=== PATIENT | female | born 1970 | race Caucasian/White ===

== ENCOUNTER 2024-09-14 06:00 | Inpatient (IN) | payer OTHER ==
[~2024-09-14] VITALS: Ht 167.6 cm; Wt 65.8 kg
[2024-09-14 06:20] LABS: BASOPHILS ABSOLUTE AUTO 0.05 K/mm3 (0.00-0.23); BASOPHILS PERCENT AUTO 0 % (0-2); EOSINOPHILS PERCENT AUTO 0 % (0-6); Hematocrit 41.6 % (33.0-51.0); Hemoglobin 14.8 g/dL (11.5-16.0); IMMATURE GRAN ABSOLUTE AUTO 0.05 K/mm3 (0.00-0.10); IMMATURE GRAN PERCENT AUTO 0 % (0-1); LYMPHOCYTES ABSOLUTE AUTO 0.95 K/mm3 (0.84-5.20); LYMPHOCYTES PERCENT AUTO 5 % (21-46); MONOCYTES ABSOLUTE AUTO 0.61 K/mm3 (0.16-1.47); MONOCYTES PERCENT AUTO 3 % (4-13); Mean Corpuscular HGB 32.2 pg (26.0-34.0); Mean Corpuscular HGB Conc 35.6 g/dL (31.5-36.5); Mean Corpuscular Volume 90 fL (80-100); Mean Platelet Volume 10.8 fL (9.1-12.4); NEUTROPHILS ABSOLUTE AUTO 19.33 K/mm3 (1.96-9.15); NEUTROPHILS PERCENT AUTO 92 % (41-73); Platelet Count 273 K/mm3 (150-400); RDW Coefficient Variation 11.9 % (11.7-14.2); RDW Standard Deviation 39.5 fL (35.1-46.3); White Blood Cell Count 20.99 K/mm3 (4.00-11.30)
[2024-09-14 06:39] LABS: Albumin, Blood 3.9 g/dL (3.4-5.0); Albumin/Globulin Ratio 1.1 (0.8-1.8); Bilirubin, Total 0.5 mg/dL (0.1-1.0); Bun/Creatinine Ratio 20.4 (12.0-20.0); Calcium, Blood 9.9 mg/dL (8.5-10.1); Creatinine, Blood 0.83 mg/dL (0.40-1.00); Globulin, Blood 3.6 g/dL (2.2-4.0); Potassium, Blood 4.1 mmol/L (3.5-5.5); Total Protein, Blood 7.5 g/dL (6.4-8.2)
[2024-09-14] MEDS ORDERED: NS 1,000 ML IV SCH ×2 (06:40→08:10)
[2024-09-14] MEDS ORDERED: Ondansetron HCl 2 MG / ML 2ML Vial IV ONE (06:40)
[2024-09-14] MEDS ORDERED: Morphine Sulfate 4 MG/1 ML Injection IV ONE (06:40)
[2024-09-14] MEDS ORDERED: FLU VACC TS2024-25(6MOS UP)/PF 45 MCG/0.5 ML SYRINGE IM SCH (08:10)
[2024-09-14] MEDS ORDERED: Ondansetron HCl 2 MG / ML 2ML Vial IV PRN (08:10)
[2024-09-14] MEDS ORDERED: MetroNIDAZOLE 500MG/NS 100 ml 100 ML IV SCH (08:11)
[2024-09-14] MEDS ORDERED: CefTRIAXone Sodium 1,000 MG in NS 100 ML IV SCH (09:00)
[2024-09-14] MEDS ORDERED: Lactobacil 2-S.Thermo-Bifido 1 1 Cap PO SCH (09:00)
[2024-09-14] MEDS ORDERED: Morphine Sulfate 4 MG/1 ML Injection IV PRN (10:45)
[2024-09-14 10:48] LABS: Source, Urine Clean Catch
[2024-09-14 10:51] LABS: Appearance, Urine Clear (Clear); Bilirubin, Urine Neg (Neg); Blood, Urine Neg (Neg); Color, Urine Yellow (P-Yellow); Glucose Qualitative, Urine Neg (Neg); Ketones, Urine Neg (Neg); Leukocyte Esterase, Urine Neg (Neg); Nitrite, Urine Neg (Neg); Protein, Urine Neg (Neg); Urobilinogen, Urine NORM (Normal)
[2024-09-14 12:47] LABS: Campylobacter Sp Not Detected (NOT DETECT); Cryptosporidium Not Detected (NOT DETECT); Cyclospora Cayetanensis Not Detected (NOT DETECT); E. Coli O157 Not Detected (NOT DETECT); Entamoeba Histolytica Not Detected (NOT DETECT); Enteroaggregative E. coli-EAEC Not Detected (NOT DETECT); Enteropathogenic E. coli-EPEC Not Detected (NOT DETECT); Enterotoxigenic E. coli-ETEC Not Detected (NOT DETECT); Giardia Lamblia Not Detected (NOT DETECT); Plesiomonas Shigelloides Not Detected (NOT DETECT); Salmonella Sp Not Detected (NOT DETECT); Shiga Toxin-prod E. coli-STEC Not Detected (NOT DETECT); Shigella/Enteroin E. coli-EIEC Not Detected (NOT DETECT); Vibrio Cholerae Not Detected (NOT DETECT); Vibrio Sp Not Detected (NOT DETECT); Yersinia Enterocolitica Not Detected (NOT DETECT)
[2024-09-14 12:48] LABS: Adenovirus F 40/41 Not Detected (NOT DETECT); Astrovirus Not Detected (NOT DETECT); Norovirus GI/GII Not Detected (NOT DETECT); Rotavirus A Not Detected (NOT DETECT); Sapovirus Not Detected (NOT DETECT)
[2024-09-14 16:04] VITALS: BP 127/86
--- NOTE | 2024-09-14 19:20 | NUR ---
RECEIVED REPORT FROM MATT RN. PT UP INDEP IN RM. ON RA. WILL CONTINUE TO PROVIDE CARE T/O SHIFT. CALL LT IN REACH.
--- NOTE | 2024-09-14 20:35 | NUR ---
PT DENIES NEEDS AT THIS TIME. PAIN HAS RESOLVED. CALL LT IN REACH.
[2024-09-14 21:34] VITALS: BP 106/70
--- NOTE | 2024-09-14 21:43 | NUR ---
NEW BAG OF NS HUNG AND INFUSING AT 100 MLS/HR. NO OTHER NEEDS. CALL LT IN REACH.
--- NOTE | 2024-09-14 23:57 | NUR ---
MEDICATED PT WITH 2MG IV MORPHINE FOR 5/10 ABD PAIN. ABX HUNG AND INFUSING. EAR PLUGS GIVEN PER PT REQUEST. NO OTHER NEEDS. CALL LT IN REACH.
--- NOTE | 2024-09-15 02:03 | NUR ---
RESTING QUIETLY. IVF INFUSING. CALL LT IN REACH.
--- NOTE | 2024-09-15 03:44 | NUR ---
PT STATES SHE GOT A LITTLE SLEEP. PAIN IS BETTER CONTROLLED. NO NAUSEA. WILL CONTINUE TO PROVIDE CARE. CALL LT IN REACH.
--- NOTE | 2024-09-15 03:45 | NUR ---
SHIFT SUMMARY: A/O X 4. INDEP IN RM. NS AT 100 MLS/HR. ON RA. STATES NEEDS APPROPRIATELY. MEDICATED FOR ABD PAIN X 3. PT SLEPT ON AND OFF DURING SHIFT. NO ACUTE CHANGES. WILL CONTINUE TO PROVIDE CARE UNTIL SHIFT REPORT TO ONCOMING NURSE. CALL LT IN REACH.
[2024-09-15 05:24] LABS: BASOPHILS ABSOLUTE AUTO 0.06 K/mm3 (0.00-0.23); BASOPHILS PERCENT AUTO 1 % (0-2); EOSINOPHILS ABSOLUTE AUTO 0.26 K/mm3 (0.00-0.68); EOSINOPHILS PERCENT AUTO 2 % (0-6); Hematocrit 36.5 % (33.0-51.0); Hemoglobin 12.3 g/dL (11.5-16.0); IMMATURE GRAN ABSOLUTE AUTO 0.04 K/mm3 (0.00-0.10); IMMATURE GRAN PERCENT AUTO 0 % (0-1); LYMPHOCYTES ABSOLUTE AUTO 2.19 K/mm3 (0.84-5.20); LYMPHOCYTES PERCENT AUTO 17 % (21-46); MONOCYTES ABSOLUTE AUTO 0.81 K/mm3 (0.16-1.47); MONOCYTES PERCENT AUTO 6 % (4-13); Mean Corpuscular HGB 32.3 pg (26.0-34.0); Mean Corpuscular HGB Conc 33.7 g/dL (31.5-36.5); Mean Platelet Volume 10.9 fL (9.1-12.4); NEUTROPHILS PERCENT AUTO 74 % (41-73); Platelet Count 195 K/mm3 (150-400); RDW Coefficient Variation 12.3 % (11.7-14.2); RDW Standard Deviation 42.8 fL (35.1-46.3); Red Blood Cell Count 3.81 M/mm3 (3.80-5.20); White Blood Cell Count 12.86 K/mm3 (4.00-11.30)
[2024-09-15 05:26] VITALS: BP 104/64
[2024-09-15 05:26] LABS: Mean Corpuscular Volume 96 fL (80-100)
[2024-09-15 05:57] LABS: Calcium, Blood 8.3 mg/dL (8.5-10.1); Creatinine, Blood 0.83 mg/dL (0.40-1.00); Potassium, Blood 3.9 mmol/L (3.5-5.5)
[2024-09-15 08:30] VITALS: BP 103/71
[2024-09-15] MEDS ORDERED: Temazepam 7.5 MG Cap PO PRN (15:20)
[2024-09-15 15:46] VITALS: BP 107/68
--- NOTE | 2024-09-15 18:45 | NUR ---
SHIFT SUMMARY PATIENT A/OX4, ABLE TO MAKE NEEDS KNOWN. PLEASANT AND COOPERATVIE WITH STAFF BUT TEARFUL AT TIMES DUE TO BEING HOSPITALIZED AND PATIENT STATES "HAS NEVER HAD HEALTH PROBLEMS". PATIENT CONSOLED AND PROVIDED WITH THERAPEUTIC LISTENING, ALSO SPENT 15 MINUTES SPEAKING WITH HER FAMILY VIA FACETIME TO EDUCATED AND UPDATE ON PATIENT STATUS AND DISCHARGE PLAN. PATIENT MEDICATED FOR PAIN THIS MORNING, BUT HAS SINCE DENIED NEED FOR PAIN MEDS AND DENIED HAVING ANY MORE BLOODY STOOLS. CONTINUES WITH IV FLUIDS, RUNNING PER OCT. UPGRADED TO FULL LIQUID DIET, TOLERATING WELL. SLEEP MEDICATION ORDERED FOR PATIENT PRN TO START TONIGHT PER HER REQUEST. NO OTHER CONCERNS AT THIS TIME.
[2024-09-15 19:28] VITALS: BP 109/71
[2024-09-16 03:04] VITALS: BP 107/65
[2024-09-16 05:34] LABS: BASOPHILS ABSOLUTE AUTO 0.06 K/mm3 (0.00-0.23); BASOPHILS PERCENT AUTO 1 % (0-2); EOSINOPHILS ABSOLUTE AUTO 0.38 K/mm3 (0.00-0.68); EOSINOPHILS PERCENT AUTO 4 % (0-6); Hematocrit 35.7 % (33.0-51.0); Hemoglobin 11.6 g/dL (11.5-16.0); IMMATURE GRAN ABSOLUTE AUTO 0.03 K/mm3 (0.00-0.10); IMMATURE GRAN PERCENT AUTO 0 % (0-1); LYMPHOCYTES ABSOLUTE AUTO 1.83 K/mm3 (0.84-5.20); LYMPHOCYTES PERCENT AUTO 18 % (21-46); MONOCYTES ABSOLUTE AUTO 0.62 K/mm3 (0.16-1.47); MONOCYTES PERCENT AUTO 6 % (4-13); Mean Corpuscular HGB 31.4 pg (26.0-34.0); Mean Corpuscular HGB Conc 32.5 g/dL (31.5-36.5); Mean Corpuscular Volume 97 fL (80-100); Mean Platelet Volume 10.9 fL (9.1-12.4); NEUTROPHILS PERCENT AUTO 71 % (41-73); Platelet Count 182 K/mm3 (150-400); RDW Coefficient Variation 12.3 % (11.7-14.2); RDW Standard Deviation 43.8 fL (35.1-46.3); White Blood Cell Count 10.12 K/mm3 (4.00-11.30)
[2024-09-16 06:05] LABS: Bun/Creatinine Ratio 6.6 (12.0-20.0); Calcium, Blood 8.4 mg/dL (8.5-10.1); Creatinine, Blood 0.76 mg/dL (0.40-1.00); Potassium, Blood 3.5 mmol/L (3.5-5.5)
--- NOTE | 2024-09-16 07:00 | NUR ---
Shift Summary After being advanced to full liquid diet yesterday at dinner pt had upset stomach and diahhrea with small amounts of dark blood in her stool. Medicated for nausea and advised to stay with clear liquids for a while longer. After a few hours nauesea and loose stool stopped and pt feels mostly better this morning.
[2024-09-16 07:35] VITALS: BP 101/63
[2024-09-16] MEDS ORDERED: VISBIOME 112.51 EACH PO (10:50)
[2024-09-16] MEDS ORDERED: HYDROCODONE-AC1 EA10 PO (10:51)
[2024-09-16] MEDS ORDERED: AMOCLA500 PO (10:51)
[2024-09-16] MEDS ORDERED: ONDA4ODT MM (10:52)
[2024-09-16] MEDS ORDERED: METR500 PO (10:52)
--- NOTE | 2024-09-16 12:49 | NUR ---
DISCHARGE NOTE PATIENT A/OX4, ABLE TO MAKE NEEDS KNOWN. PLEASANT AND COOPERATIVE. IV REMOVED PRIOR TO DISCHARGE. PATIENT EDUCATED REGARDING HOSPITAL FOLLOW UP APPOINTMENT TO SCHEDULE WITH PCP AND COLONOSCOPY AND MEDICATIONS. PATIENT AND SPOUSE AGREEABLE TO PLAN. MEDICATED WITH MOPRHPHINE EARLIER THIS MORNING FOR MODERATE ABDOMINAL PAIN 5/10. PATIENT STATES HAD ONE EPISODE OF BLOODY BOWEL MOEVEMENT THIS AM, SMALL AMOUNT. NO OTHER CONCERNS. PATIENT ASSISTED TO FAMILY VEHICLE WITH ALL BELONGINGS IN HAND.
== END 2024-09-16 12:45 | disposition home or self-care (01) | DRG 392 ==
LOC: ER 06:00 → MEDS 06:01 → ERHOLD 06:01 → MEDS 15:57 → ENPENDDIS 09-16 10:44 → MEDS 09-16 12:45
PROVIDERS: Emergency Medicine; ADMIT Internal Medicine
DX: K52.9 Noninfective gastroenteritis and colitis, unspecified (principal); K62.5 Hemorrhage of anus and rectum; F17.210 Nicotine dependence, cigarettes, uncomplicated
CPT/HCPCS: 36415; 74177; 80048; 80053; 81003; 83605; 85025; 87507; 93005; 93010; 96361; 96365-59; 96367; 96375; 96376; 99285-25; A9270; G0378; J0696; J2270; J2405; J7030; Q9967

== ENCOUNTER 2024-09-18 04:01 | Observation (INO) | payer OTHER ==
[~2024-09-18] VITALS: Ht 165.1 cm; Wt 65.8 kg
[~2024-09-18 04:01] MED LIST: AMOCLA500 PO; HYDROCODONE-AC1 EA10 PO; METR500 PO; ONDA4ODT MM; VISBIOME 112.51 EACH PO
[2024-09-18 04:55] LABS: BASOPHILS ABSOLUTE AUTO 0.05 K/mm3 (0.00-0.23); BASOPHILS PERCENT AUTO 1 % (0-2); EOSINOPHILS ABSOLUTE AUTO 0.29 K/mm3 (0.00-0.68); EOSINOPHILS PERCENT AUTO 4 % (0-6); Hematocrit 36.7 % (33.0-51.0); Hemoglobin 12.8 g/dL (11.5-16.0); IMMATURE GRAN ABSOLUTE AUTO 0.01 K/mm3 (0.00-0.10); IMMATURE GRAN PERCENT AUTO 0 % (0-1); LYMPHOCYTES PERCENT AUTO 17 % (21-46); MONOCYTES ABSOLUTE AUTO 0.56 K/mm3 (0.16-1.47); MONOCYTES PERCENT AUTO 7 % (4-13); Mean Corpuscular HGB 32.4 pg (26.0-34.0); Mean Corpuscular HGB Conc 34.9 g/dL (31.5-36.5); Mean Corpuscular Volume 93 fL (80-100); Mean Platelet Volume 10.7 fL (9.1-12.4); NEUTROPHILS ABSOLUTE AUTO 5.36 K/mm3 (1.96-9.15); NEUTROPHILS PERCENT AUTO 71 % (41-73); Platelet Count 227 K/mm3 (150-400); RDW Coefficient Variation 11.9 % (11.7-14.2); RDW Standard Deviation 41.2 fL (35.1-46.3); Red Blood Cell Count 3.95 M/mm3 (3.80-5.20); White Blood Cell Count 7.57 K/mm3 (4.00-11.30)
[2024-09-18 05:07] LABS: Source, Urine Clean Catch
[2024-09-18 05:23] LABS: Acetaminophen, Random <2.0 ug/mL (10.0-30.0); Alanine Aminotransfer (ALT/SGP 13 U/L (12-78); Albumin, Blood 3.1 g/dL (3.4-5.0); Alk Phos 60 U/L (50-136); Anion Gap 10 mmol/L (3-11); Aspartate Aminotrans (AST/SGOT 15 U/L (12-37); Bilirubin, Total 0.3 mg/dL (0.1-1.0); Blood Urea Nitrogen 6 mg/dL (8-24); Bun/Creatinine Ratio 7.3 (12.0-20.0); CO2, Blood 23 mmol/L (21-32); Calcium, Blood 8.8 mg/dL (8.5-10.1); Chloride, Blood 114 mmol/L (98-108); Creatinine, Blood 0.82 mg/dL (0.40-1.00); Ethanol (Alcohol), Blood, Med <3 mg/dL; Globulin, Blood 3.2 g/dL (2.2-4.0); Glomerular Filtration Rate 84 (60-); Glucose, Blood 112 mg/dL (70-99); Potassium, Blood 3.3 mmol/L (3.5-5.5); Salicylate 1.9 mg/dL (2.8-20.0); Sodium, Blood 144 mmol/L (136-145); Total Protein, Blood 6.3 g/dL (6.4-8.2)
[2024-09-18 05:24] LABS: Appearance, Urine Clear (Clear); Bilirubin, Urine Neg (Neg); Blood, Urine Neg (Neg); Color, Urine Yellow (P-Yellow); Glucose Qualitative, Urine Neg (Neg); Ketones, Urine 1+ (Neg); Leukocyte Esterase, Urine 1+ (Neg); Nitrite, Urine Neg (Neg); Protein, Urine Neg (Neg); Specific Gravity, Urine 1.015 (1.003-1.022); Urobilinogen, Urine NORM (Normal)
[2024-09-18 05:33] LABS: U Amphetamine Screen Not Detected; U Barbituate Screen Not Detected; U Benzodiazapine Screen DETECTED; U Buprenorphine Screen Not Detected; U Cannabinoids Screen Not Detected; U Cocaine Screen Not Detected; U Methadone Screen Not Detected; U Methamphetamine Screen Not Detected; U Opiates Screen Not Detected; U Oxycodone Screen Not Detected; U Phencyclidine Screen Not Detected
[2024-09-18 05:36] LABS: Bacteria Few /hpf; Red Blood Cells, Urine Not Seen /hpf (0-2); Squamous Epithelial Cells Mod /hpf (Few); White Blood Cells, Urine 0-2 /hpf (0-5)
[2024-09-18] MEDS ORDERED: Ondansetron 4 MG SoluTab SL ONE (08:00)
[2024-09-18] MEDS ORDERED: Bismuth Subsalicylate 262 MG Chew PO ONE (08:00)
[2024-09-18] MEDS ORDERED: Dicyclomine HCl 20 MG Tab PO ONE (08:00)
[2024-09-18] MEDS ORDERED: Famotidine 20 MG Tab PO SCH (09:00)
[2024-09-18] MEDS ORDERED: MetroNIDAZOLE 500 MG Tab PO SCH (09:00)
[2024-09-18] MEDS ORDERED: Amoxicillin/Clavulanate K 875 MG Tab PO SCH (09:00)
[2024-09-18] MEDS ORDERED: Lactobacil 2-S.Thermo-Bifido 1 1 Cap PO SCH (09:00)
[2024-09-18 11:07] VITALS: BP 136/82
== END 2024-09-18 12:14 | disposition home or self-care (01) ==
LOC: ER 04:01 → EOR 04:02
PROVIDERS: ADMIT Emergency Medicine
DX: R45.851 Suicidal ideations (principal)
CPT/HCPCS: 80053; 80320; 81001; 81025; 85025; 93005; 93010; 99285-25; A9270; G0378; G0480

== ENCOUNTER 2024-10-30 07:14 | Day surgery (SDC) | payer OTHER ==
[2024-10-30] VITALS (17 sets, daily range): BP systolic 91–117; BP diastolic 56–77
[~2024-10-30] VITALS: Ht 170.2 cm; Wt 61.3 kg
[~2024-10-30 07:14] MED LIST changes: +Lactated Ringer's 1,000 ML IV SCH
--- NOTE | 2024-10-30 07:39 | NUR ---
History, Chart, Medications and Allergies reviewed before start of procedure. Patient confirms NPO status and agrees with scheduled surgery. Patient reports no menses x3 years due to menopause, no HCG indicated. Reports taking all of colon prep with clear, light yellow results.
[2024-10-30] MEDS ORDERED: propofoL 40 ML IV ONE (08:03)
--- NOTE | 2024-10-30 08:17 | NUR ---
10/30/24 0817 Brian Lucas CONFIRMED AND REVIEWED H&P, MEDCICATIONS, ALLERGIES, MEDICAL HISTORY, RESPIRATORY HISTORY, VITAL SIGNS, 3-LEAD EKG, CONSENTS, AND PHYSICIAN ORDERS. PATIENT CONFIRMS NPO STATUS AND AGREES WITH SCHEDULED PROCEDURE. MONITOR INTACT WITH CONTINUOUS PULSE OXIMETRY, CAPNOGRAPHY, 3-LEAD EKG, INTERMITTENT BP. SUPPLEMENTAL O2 TO BE TITRATED THROUGHOUT PROCEDURE TO MAINTAIN O2 SATURATION ABOVE 90%. PATIENT DETERMINED TO BE ASA APPROPRIATE FOR PROPOFOL SEDATION PRIOR TO START OF PROCEDURE BY DR. FINLEY
--- NOTE | 2024-10-30 08:59 | NUR ---
Discharge instructions reviewed with patient. Patient verbalizes understanding. Copy given to patient to take home. Patient States Post-Procedure ride home has been arranged. Discharged via wheelchair to private car for ride home.
== END 2024-10-30 09:00 | disposition home or self-care (01) ==
LOC: ORSCMMR 07:14 → ORD 08:00 → ORSCMMR 08:00
PROVIDERS: Internal Medicine Gastroenterology
PROC: 0DBM8ZX Excision of Descending Colon, Via Natural or Artificial Opening Endoscopic, Diagnostic (ICD-10-PCS; principal; 2024-10-30 08:00)
PROC: 0DBE8ZX Excision of Large Intestine, Via Natural or Artificial Opening Endoscopic, Diagnostic (ICD-10-PCS; principal; 2024-10-30 08:00)
PROC: 0DBN8ZX Excision of Sigmoid Colon, Via Natural or Artificial Opening Endoscopic, Diagnostic (ICD-10-PCS; principal; 2024-10-30 08:00)
DX: K62.5 Hemorrhage of anus and rectum (principal); R93.3 Abnormal findings on diagnostic imaging of other parts of digestive tract; R19.7 Diarrhea, unspecified; K63.5 Polyp of colon; J44.9 Chronic obstructive pulmonary disease, unspecified; F17.210 Nicotine dependence, cigarettes, uncomplicated
CPT/HCPCS: 88305; J2704; J7120